=== PATIENT | male | born 1960 | race Caucasian/White ===

== ENCOUNTER 2023-12-26 23:26 | Day surgery (SDC) | payer OTHER, SELFPAY ==
[2023-12-26 20:21] VITALS: BP 151/94
--- NOTE | 2023-12-26 21:21 | ED.GENMED ---
History of Present Illness
General
Chief Complaint: Abdominal Pain
Source: patient
Time Seen by Provider: 12/26/23 20:51
History of Present Illness
History of Present Illness:
63-year-old male presenting to the emergency department for evaluation of right lower quadrant abdominal pain that began last night, initially started as generalized abdominal discomfort but localized to the right lower abdomen today. Patient
denies any fevers, chills, rigors but states today he really has not had much of an appetite. Denies any history of similar. Did not take anything for pain prior to arrival. No other concerns. Noted surgical history for previous hernia repair.
Past History
Past History
ED Past Medical History: None
ED Past Surgical History: Other
Social History
Tobacco: Non-smoker
Alcohol: Occasional
Drug: None
Personal:
Living: with family
Employment: Employed
Review of Systems
Review of Systems
All Other Systems: ROS reviewed and negative except as documented in HPI and ROS
Phy Exam
Physical Exam
Physical Exam:
GENERAL: Alert , in no apparent distress
EYE: clear conjunctiva b/l
HEAD: NCAT
ENT: , mmm.
CARDIAC: Regular rate and rhythm .
LUNGS: Clear breath sounds bilaterally, no acute respiratory distress, no wheezes/rales/rhonchi
ABDOMEN: firm, guarding with palpation to RLQ, no cvat, negative Winn sign, moderate tenderness at McBurney's point
NEUROLOGICAL: Alert and oriented
SKIN: Warm and dry, skin intact.
MUSCULOSKELETAL: well perfused.
PSYCH: Normal and appropriate interaction.
Scores
Heart Failure Risk
Heart Failure Risk Score: Not Applicable
Heart Score for Chest Pain Patients
STEMI patient?: Not applicable
Withdrawal Assessment of Alcohol
Withdrawal Assessment Completed?: Not applicable
Course
Orders/Labs/Results
Orders:
Orders
12/26/23 20:58
CT Abd/Pel (IV only)-DH only Urgent
Comment:
Reason For Exam: RLQ pain
12/26/23 21:17
Complete Blood Count/With Diff Urgent
Comprehensive Metabolic Panel Urgent
Lipase Urgent
Urinalysis Reflex To Culture Urgent
Date Specimen was Collected: 12/26/23
Time Specimen was Collected: 20:59
Urine Microscopic Reflex Cult Urgent
Urine Culture Urgent
CHARLENE Source: U
Specimen Description:
Date Specimen was Collected: 12/26/23
Time Specimen was Collected: 20:59
12/26/23 22:50
Fosfomycin [Monurol] 3 gm PO ONCE ONE
12/26/23 22:55
LevoFLOXacin 500 MG/100 ML [Levaquin] 500 mg in 100 ml IV NOW
MetroNIDAZOLE 500 MG/100 ML [Flagyl 500 mg] 100 ml IV NOW
Abnormal Lab Results
12/26/23
21:17
WBC 14.8 H 10^3/uL
(4.8-10.8)
MPV 10.5 H fL
(7.4-10.4)
Abs Immat Gran (auto) 0.1 H 10^3/uL
(0-0.05)
Absolute Neuts (auto) 12.2 H 10^3/uL
(1.4-6.5)
Absolute Lymphs (auto) 0.9 L 10^3/uL
(1.2-3.4)
Absolute Monos (auto) 1.5 H 10^3/uL
(0.1-0.6)
Immature Gran % 0.7 H %
(0-0.5)
Neutrophils % 82.5 H %
(42.2-75.2)
Lymphocytes % 6.0 L %
(20.5-51.1)
Monocytes % 10.2 H %
(1.7-9.3)
Glucose 132 H mg/dl
(70-99)
Total Bilirubin 3.0 H mg/dl
(0.2-1.3)
Urine Ketones 3+ A
(Negative)
Leukocyte Esterase Rfl Trace A
(Negative)
Urine WBC (Reflex) 26-30 A /HPF
(0-5)
Urine Bacteria (Reflex) Few A
(Negative)
12/26/23 21:17
12/26/23 21:17
Vital Signs
Initial and Last Documented VS:
Initial Vital Signs
Temp Pulse Resp BP Pulse Ox
98.1 F 115 16 151/94 98
12/26/23 20:21 12/26/23 20:21 12/26/23 20:21 12/26/23 20:21 12/26/23 20:21
Last Documented Vital Signs
Temp Pulse Resp BP Pulse Ox
98.1 F 112 15 156/83 96
12/26/23 20:21 12/26/23 22:32 12/26/23 22:32 12/26/23 22:32 12/26/23 22:32
MDM/Problems Addressed
Differential Diagnosis Includes:
appendicitis, peritonitis, diverticulitis, renal/ureteral colic
MDM/Problems Addressed:
63-year-old male presenting to the ER for evaluation abdominal pain that started yesterday, localized to the right lower quadrant today. Focally tender within the right lower quadrant with a firm abdomen. Clinically suspicious for acute
appendicitis. Labs and CT imaging ordered. Patient declining anything for pain at this time. Reassessment following.
*Radiology
Radiology exam reviewed: radiology read reviewed
*Pulse Oximetry
Patient hypoxic: no
*Critical Care Note
Total Time (30-74mins, 75-104mins- exclusive of procedures): Not Applicable
Patient Management
Discussion with other providers: Hospitalist and Starch Treating Assistant
Escalation/DeEscalation of care consider admission/obs:
Patients CT scan shows acute appendicitis. no abscess/perforation. General surgery notified. levaquin/flagyl ordered for abx coverage. House provider notified to admit to general surgery service. NPO after midnight. Plan for OR in the morning.
ED Attending Note
-
Portions of this chart may have been created with voice recognition software.� Occasional wrong word or��sound alike� substitutions may have occurred due to the inherent limitations of voice recognition software.
Discharge Plan
Departure
Patient Disposition: Admit
Date of Disposition: 12/26/23
Time of Disposition: 22:52
Presentation/result/management discussed w/ accepting MD/DO: Robson
Patient with high blood pressure during this ER visit?: No
Discharge Problem:
Acute appendicitis
Prescriptions:
No Action
No Current Medications
0
Referrals:
UNKNOWN - PT DOES,NOT KNOW [Family Provider] -
Interventions
Interventions:
*Risk Screen - Suicide Last Done: 12/26/23 20:20
*General Assessment Last Done: 12/26/23 20:53
*Neglect/Abuse Screening Last Done: 12/26/23 20:21
ED- Fall Risk Assessment Last Done: 12/26/23 20:54
*ED COVID-19 Vaccine History Last Done: 12/26/23 20:53
EA-Awqzcx-Okklrebgqv Assessment Last Done: 12/26/23 20:54
Discharge Date and Time
Print Language: CROATIAN
[2023-12-26 21:36] LABS: % Basophils 0.4 % (0-2); % Eosinophils 0.2 % (0-6); % Immature Granulocytes 0.7 % (0-0.5); % Monocytes 10.2 % (1.7-9.3); % Neutrophils 82.5 % (42.2-75.2); Absolute Basophils 0.1 10^3/uL (0-0.2); Absolute Immature Granulocytes 0.1 10^3/uL (0-0.05); Absolute Lymphocytes 0.9 10^3/uL (1.2-3.4); Absolute Monocytes 1.5 10^3/uL (0.1-0.6); Absolute Neutrophils 12.2 10^3/uL (1.4-6.5); Hematocrit 49.8 % (39.0-52.0); Hemoglobin 17.9 g/dL (13.0-18.0); Mean Corp Hgb Conc. 35.9 g/dL (33.0-37.0); Mean Corpuscular Hgb 30.7 pg (27.0-31.0); Mean Corpuscular Volume 85.3 fL (80.0-94.0); Mean Platelet Volume 10.5 fL (7.4-10.4); Nucleated Red Blood Cells % 0 % (-); Platelet Count 228 10^3/uL (130-400); Red Blood Cell Count 5.84 10^6/uL (4.70-6.10); Red Cell Dist. Width 12.3 % (11.5-14.5); White Blood Cell Count 14.8 10^3/uL (4.8-10.8)
[2023-12-26 21:38] LABS: Urine Albumin Negative (Neg - Trace); Urine Bilirubin Negative (Negative); Urine Character Clear (Clear); Urine Color Yellow; Urine Glucose Negative (Negative); Urine Ketone 3+ (Negative); Urine Leukocyte Trace (Negative); Urine Nitrite Negative (Negative); Urine Occult Blood Negative (Negative); Urine Urobilinogen Negative (Neg - 1+)
[2023-12-26 21:46] LABS: ALT (SGPT) 35 U/L (0-50); AST (SGOT) 33 U/L (17-59); Alkaline Phosphatase 79 U/L (38-126); Blood Urea Nitrogen 12 mg/dl (9-20); Calcium 9.9 mg/dl (8.4-10.2); Carbon Dioxide 26 mmol/L (22-30); Chloride 98 mmol/L (98-107); Glucose 132 mg/dl (70-99); Lipase 51 U/L (23-300); Sodium 138 mmol/L (135-145); Total Protein 7.5 g/dl (6.3-8.2); eGFR > 60.00
[2023-12-26 21:52] LABS: Urine Bacteria Few (Negative); Urine Squamous Cell 0-2 /LPF (Few); Urine White Cell 26-30 /HPF (0-5)
[2023-12-26 22:32] VITALS: BP 156/83; BMI 21.8
[2023-12-26] MEDS: FLAGYL 500 MG 100 IV (23:02)
[2023-12-27] VITALS (16 sets, daily range): BP systolic 115–138; BP diastolic 67–80; BMI 21.4
--- NOTE | 2023-12-27 00:45 | PTCARENOTE ---
Pt received from ED at 0030. Pt pleasant, AAOX3, VSS, and able to ambulate into room. Pt states he is not experiencing any pain at the moment, just slight discomfort. Pt bed in lowest position and call pantoja within reach. Pt educated on the
importance of call pnatoja usage, pt relays understanding and cooperation. Will continue with current plan of care.
--- NOTE | 2023-12-27 01:12 | HPS.HSE ---
Family Physician
<BASILIO Hurley - Last Filed: 12/27/23 01:36>
-
Family Physician: NOT KNOW UNKNOWN - PT DOES
Chief Complaint
<BASILIO Hurley - Last Filed: 12/27/23 01:36>
-
abd pain (RLQ)
History of Present Illness
63-year-old male presenting to the emergency department for evaluation of right lower quadrant abdominal pain that began last night, initially started as generalized abdominal discomfort but localized to the right lower abdomen today. [place] as
though he need to have BM so he took miralax but pain continued. Patient denies any fevers, chills, rigors. Took his temp via forehead thermometer and read 99. Afebrile in ED. States today he really has not had much of an appetite. Denies any
history of similar. Took an aleve for pain prior to arrival. No other concerns. Noted surgical history for previous inguinal hernia repair bilaterally.
CT abd: IMPRESSION:
Blind-ending tubular structure in the right lower quadrant of the abdomen measuring up to 1.3 cm with likely small appendicolith within and with some surrounding stranding suspicious for ACUTE APPENDICITIS with likely secondary associated adjacent
stranding of the cecum and terminal ileum.
Horseshoe kidney with nonobstructing right-sided calculus
WBC 14.8 with neutrophil 82.5
Due to PCN allergy started on levaquin/flagyl iv
Medical History
<BASILIO Hurley - Last Filed: 12/27/23 01:36>
Past Medical History
Past Medical History: Reports None
Past Surgical History: Reports Other (bilateral inguinal hernia repair 2000, 2001 )
Social History
Tobacco: Non-smoker
Alcohol: None
Drug: None
Personal:
Living: With Family
Family History
Family History: Not pertinent
Allergies / Home Medications
Allergies reflects when Allergies were last updated in [employer].
Home Medications with original date entered in [employer]
Allergy/Medication List:
Takes no medication on daily basis
Aleve po one tab prn pain
Review of Systems
<BASILIO Hurley - Last Filed: 12/27/23 01:36>
-
History Source: Patient
A 12 point ROS was completed and negative except as noted: Yes
Constitutional: Reports Fever (99, felt flushed) and Other (anorexia today)
EENT: Reports No Symptoms
Respiratory: Reports No Symptoms
Cardiac: Reports No Symptoms
Abdomen/GI: Reports Abdominal Pain (initially diffuse abd pain then localized to RLQ) and Constipated (thought maybe pain was caused by constipated at first)
: Reports No Symptoms
Musculoskeletal: Reports No Symptoms
Skin: Reports No Symptoms
Neurological: Reports No Symptoms
Endocrine: Reports No Symptoms
Hematologic/Lymphatic: Reports No Symptoms
Psych: Reports No Symptoms
Physical Exam
<BASILIO Hurley - Last Filed: 12/27/23 01:36>
Vital Signs
Vital Signs
Temp Pulse Resp BP Pulse Ox
98.6 F 128 18 127/80 98
12/27/23 00:25 12/27/23 00:25 12/27/23 00:25 12/27/23 00:25 12/27/23 00:25
Physical Exam
General: Well Developed, Well Nourished, No Apparent Distress and Comfortable (no pain laying down, only with movement)
HEENT: NormoCephalic, Anicteric, Moist mucous membranes, Atraumatic, Good Dentition and PERRLA
Respiratory: Clear and Non Labored Respirations
Cardiac: S1/S2 and Tachycardia (HR 114 reg)
Breast: Deferred by me
GI: Soft, Tender (RLQ) and Distended (softly distended)
Rectal: Deferred by Provider
Musculoskeletal: No Clubbing and No Cyanosis
Skin: Dry
Neuro: Alert, Oriented, AO x 3 and No Motor Deficits
Hematologic/Lymphatic: No Lymphadenopathy
Psych: Calm
Laboratory Results
<BASILIO Hurley - Last Filed: 12/27/23 01:36>
-
12/26/23 21:17
12/26/23 21:17
Laboratory Results
Total Bilirubin 3.0 mg/dl (0.2-1.3) H 12/26/23 21:17
AST 33 U/L (17-59) 12/26/23 21:17
ALT 35 U/L (0-50) 12/26/23 21:17
Alkaline Phosphatase 79 U/L (38-126) 12/26/23 21:17
Lipase 51 U/L (23-300) 12/26/23 21:17
Data Reviewed
<BASILIO Hurley - Last Filed: 12/27/23 01:36>
-
CT Scan: Report Reviewed by me and Discussed with Physician
Impression/Plan
<BASILIO Hurley - Last Filed: 12/27/23 01:36>
-
IMPRESSION:
acute appendicitis
PLAN:
Admit to service of Dr Chance
#acute appendicitis
-NPO x meds after midnight- OR sometime tomorrow
-Pain control: tylenol, toradol, dilaudid
-cont levaquin and flagyl iv
-CT abd: IMPRESSION: Blind-ending tubular structure in the right lower quadrant of the abdomen measuring up to 1.3 cm with likely small appendicolith within and with some surrounding stranding suspicious for ACUTE APPENDICITIS with likely secondary
associated adjacent stranding of the cecum and terminal ileum.
Horseshoe kidney with nonobstructing right-sided calculus
-WBC 14.8/neutrophiles 82.5 -> continue to trend cbc
#Tachycardia:
-likely due to infection/pain vs dehydration
-Will monitor on tele for now
-IVF overnight
#hyperbilirubinemia
-bili 3.0
-Likely due to infection
-repeat in am
#poss uti-
-levaquin should cover for now
- follow up urine culture
-UA with Leukocytosis and WBC
DVT proph: scd
Full code
<Baldo Lin MD - Last Filed: 12/27/23 10:07>
-
IMPRESSION:
acute appendicitis
PLAN:
Admit to service of Dr Chance
#acute appendicitis
-NPO x meds after midnight- OR sometime tomorrow
-Pain control: tylenol, toradol, dilaudid
-cont levaquin and flagyl iv
-CT abd: IMPRESSION: Blind-ending tubular structure in the right lower quadrant of the abdomen measuring up to 1.3 cm with likely small appendicolith within and with some surrounding stranding suspicious for ACUTE APPENDICITIS with likely secondary
associated adjacent stranding of the cecum and terminal ileum.
Horseshoe kidney with nonobstructing right-sided calculus
-WBC 14.8/neutrophiles 82.5 -> continue to trend cbc
#Tachycardia:
-likely due to infection/pain vs dehydration
-Will monitor on tele for now
-IVF overnight
#hyperbilirubinemia
-bili 3.0
-Likely due to infection
-repeat in am
#poss uti-
-levaquin should cover for now
- follow up urine culture
-UA with Leukocytosis and WBC
DVT proph: scd
Full code
I saw and examined the patient independently.
The Corn Grower's note was reviewed and I agree with the note, assessment and plan except where noted below.
Comment: This is a 63-year-old male who presents with a 2-day history of worsening abdominal pain now more focal in the right lower quadrant. Exam, imaging, blood work all consistent with acute cholecystitis.
Will plan for a laparoscopic appendectomy today.
N.p.o., IV fluids, IV antibiotics.
Risks/Benefits/Alternatives, expected postoperative course and possible complications (bleeding, infection, injury to surrounding structures, acute/chronic pain) discussed at length. Patient wishes to proceed with surgery. All questions answered.
Consent obtained.
I spent 60 minutes in total for the care of this patient today including direct patient care and counseling, reviewing labs, imaging, coordination of care, as well as documentation.
[2023-12-27] MEDS: NSS 1000 IV ×2 (01:13→19:32)
[2023-12-27] MEDS: LEVAQUIN 100 IV (01:13)
[2023-12-27 06:34] LABS: % Basophils 0.1 % (0-2); % Immature Granulocytes 0.4 % (0-0.5); % Lymphocytes 5.9 % (20.5-51.1); % Neutrophils 83.6 % (42.2-75.2); Absolute Immature Granulocytes 0.1 10^3/uL (0-0.05); Absolute Lymphocytes 0.9 10^3/uL (1.2-3.4); Absolute Monocytes 1.6 10^3/uL (0.1-0.6); Absolute Neutrophils 13.2 10^3/uL (1.4-6.5); Hematocrit 45.3 % (39.0-52.0); Hemoglobin 16.5 g/dL (13.0-18.0); Mean Corp Hgb Conc. 36.4 g/dL (33.0-37.0); Mean Corpuscular Hgb 31.1 pg (27.0-31.0); Mean Corpuscular Volume 85.3 fL (80.0-94.0); Mean Platelet Volume 10.4 fL (7.4-10.4); Nucleated Red Blood Cells % 0 % (-); Platelet Count 198 10^3/uL (130-400); Red Blood Cell Count 5.31 10^6/uL (4.70-6.10); Red Cell Dist. Width 12.1 % (11.5-14.5); White Blood Cell Count 15.8 10^3/uL (4.8-10.8)
[2023-12-27 06:43] LABS: Lactic Acid 0.8 mmol/L (0.7-2.0)
[2023-12-27 07:02] LABS: ALT (SGPT) 27 U/L (0-50); AST (SGOT) 26 U/L (17-59); Albumin 4.1 g/dl (3.5-5.0); Alkaline Phosphatase 61 U/L (38-126); Blood Urea Nitrogen 10 mg/dl (9-20); Calcium 9.1 mg/dl (8.4-10.2); Carbon Dioxide 24 mmol/L (22-30); Chloride 102 mmol/L (98-107); Estimated Creatinine Clearance 76 ml/min; Glucose 131 mg/dl (70-99); Potassium 4.1 mmol/L (3.5-5.1); Sodium 140 mmol/L (135-145); Total Bilirubin 3.1 mg/dl (0.2-1.3); Total Protein 6.7 g/dl (6.3-8.2); eGFR > 60.00
[2023-12-27] MEDS: FLAGYL 500 MG 100 IV ×3 (08:11→22:25)
--- NOTE | 2023-12-27 10:40 | W.SUR.PREOP ---
Pre-Operative Surgical Note
-
I have examined this patient prior to the performance of the scheduled procedure.
The patient's condition is unchanged from the time of the current History and
Physical and the patient is able to undergo the scheduled procedure.
--- NOTE | 2023-12-27 13:52 | W.IMMPOSTOP ---
Surgical Immed Post Op Note
-
Primary Surgeon: Baldo Lin MD
Assisting Surgeon: None
Pre-op Diagnosis: Acute appendicitis
Post-op Diagnosis: Perforated appendicitis, peritonitis, intra-abdominal abscess
Procedure Performed:
1. Laparoscopic appendectomy
2. Drainage of intra-abdominal abscess
Anesthesia Type: General
Specimen / Cultures:
1. Appendix
2. Periappendiceal fluid for Gram stain and culture aerobic and anaerobic
Estimated Blood Loss: 7 cc
Complications: None
Operative Findings: Three 5 mm port appendectomy. Peritonitis could be appreciated over the bladder, small bowel and omentum. There was purulent fluid all along the right colic gutter. The appendix appeared perforated just distal to the base.
The base itself appeared healthy and was ligated with 2-0 PDS Endoloops. A 19 Danish round Bharathi drain was inserted through the left lateral port and passed along the pelvis and up the right colic gutter.
POST OP PLAN:
Imaging: None
Labs: Routine AM
Diet: Sips and chips, clears in pm, he is at risk for ileus
Analgesia: Tylenol 650mg q6 Anna, Radha 5mg q6 PRN, Dilaudid 0.5mg q2h PRN
Neuro/vascular checks: q4h
AC/AP: Hold Therapeutic AC, Ok for DVT PPx
Activity: Ad Carol
Wound/Incisions/Drains: Routine
Abx: Will plan for a 4-day course of antibiotics
Dispo: RNF
--- NOTE | 2023-12-27 14:10 | OR.RPT ---
Operative Report
Operative Report
Patient Name: Karan Gallardo
: 1960
Date of Operation: 12/27/2023
Preoperative Diagnosis: Acute Appendicitis
Postoperative Diagnosis: perforated appendicitis, peritonitis, intra-abdominal abscess
Procedure(s):
Laparoscopic Appendectomy
Drainage of intra-abdominal abscess
Surgeon(s):
Dr. Lin
Process Maintenance Technician(s):
JASMINE Bryan
RICK Vazquez
Anesthesia: General
Estimated Blood Loss: 7 cc
Urine Output: None
Drains/Lines/Implants: 19 Mozambican round Bharathi drain
Specimens:
1. Appendix
2. Peritoneal fluid for Gram stain and culture aerobic and anaerobic
HPI/Surgical Indications:
This is a 63-year-old male who presents with a 2 day history of abdominal pain. Exam, labs and imaging are consistent with acute appendicitis. Risks/Benefits/Alternatives were discussed at length, and the patient agreed to proceed with surgery.
Operative Findings: Three 5 mm port appendectomy. Peritonitis could be appreciated over the bladder, small bowel and omentum. There was purulent fluid all along the right colic gutter, which was cultured. The appendix appeared perforated just
distal to the base. The base itself appeared healthy and was ligated with 2-0 PDS Endoloops. A 19 Mozambican round Bharathi drain was inserted through the left lateral port and passed along the pelvis and up the right colic gutter.
Procedure Description:
The patient was placed in the supine position, with the left arm tucked, and general anesthesia was induced. The abdomen was prepared and draped in a sterile fashion so as to expose the entire abdomen. A surgical time out was taken. Abdominal access
was obtained with a 5 mm infra-umbilical Anastasia Entry. After confirming no injury on entrance, two additional 5mm ports were placed in the suprapubic area just off midline and in the left lower quadrant. The patient was placed in Trendelenberg with
the right slightly up. There is clear evidence of intra-abdominal peritonitis over the bladder, small bowel and omentum. After peeling back the omentum, the appendix was identified and a window was created in the mesoappendix. The appendix was
perforated near its base with free pus all along the right colic gutter and into the pelvis. Using a laparoscopic bipolar energy device, the meso appendix was divided. The base of the appendix appeared uninvolved and was ligated/divided using two
0-PDS Endoloops and the energy device. The appendix was placed in a specimen retrieval bag. The pus in the right colic gutter was cultured and then suctioned out. There was also pus in the pelvis which was suctioned and irrigated until clear. A
19 Mozambican round Bharathi drain was then introduced through the left lateral port and passed across the pelvis and then up the right colic gutter. It was secured to the skin with a 2-0 nylon suture. Hemostasis was confirmed and the ports were removed
under visualization. The specimen was passed off the field. The umbilical port was closed with a [id number] 0-PDS and the skin for all three ports was closed with interrupted monocryls and covered with dermabond. The patient was awoken from
anesthesia in good condition and transported to the recovery area.
I was the attending physician and performed the procedure with assistance from the CHANNEL PROCESS PLANT OPERATOR and student above. I was present for all portions of the case excluding skin closure.
Baldo Lin MD
[2023-12-27] MEDS: NSS IV (19:31)
[2023-12-28] MEDS: LEVAQUIN 100 IV (00:03)
[2023-12-28 03:32] VITALS: BP 133/75
[2023-12-28] MEDS: FLAGYL 500 MG 100 IV (06:01)
[2023-12-28] MEDS: NSS 1000 IV (06:01)
[2023-12-28 07:00] VITALS: BP 133/77
[2023-12-28 07:15] LABS: % Basophils 0.1 % (0-2); % Immature Granulocytes 0.7 % (0-0.5); % Lymphocytes 5.3 % (20.5-51.1); % Monocytes 8.6 % (1.7-9.3); % Neutrophils 85.3 % (42.2-75.2); Absolute Immature Granulocytes 0.1 10^3/uL (0-0.05); Absolute Lymphocytes 0.8 10^3/uL (1.2-3.4); Absolute Monocytes 1.2 10^3/uL (0.1-0.6); Absolute Neutrophils 12.1 10^3/uL (1.4-6.5); Hemoglobin 15.2 g/dL (13.0-18.0); Mean Corp Hgb Conc. 35.3 g/dL (33.0-37.0); Mean Corpuscular Hgb 30.6 pg (27.0-31.0); Mean Corpuscular Volume 86.7 fL (80.0-94.0); Mean Platelet Volume 10.9 fL (7.4-10.4); Nucleated Red Blood Cells % 0 % (-); Platelet Count 182 10^3/uL (130-400); Red Blood Cell Count 4.96 10^6/uL (4.70-6.10); Red Cell Dist. Width 12.5 % (11.5-14.5); White Blood Cell Count 14.2 10^3/uL (4.8-10.8)
[2023-12-28 07:35] LABS: Blood Urea Nitrogen 14 mg/dl (9-20); Calcium 8.6 mg/dl (8.4-10.2); Carbon Dioxide 21 mmol/L (22-30); Chloride 106 mmol/L (98-107); Estimated Creatinine Clearance 85 ml/min; Glucose 113 mg/dl (70-99); Potassium 3.9 mmol/L (3.5-5.1); Sodium 142 mmol/L (135-145); eGFR > 60.00
[2023-12-28 11:00] VITALS: BP 124/63
--- NOTE | 2023-12-28 12:06 | CM ---
[facility]/28[facility]23 13[facility]19[facility]
Dc order notrd along with VN consult
Call with pt who noes he feels he can manage the drain independently at home
Discussion with Marycarmen/surgery
They are in agreement with self care of drain at home
Discharge Disposition- home, no needs
Addendum entered by [facility] 12/28/23 12:09:
Of note, it noted to be OBS status on chart
Admission order noted for post surgical recovery
OBS notice not issued
Original Note:
CM met with pt and spouse bedside
They reside in a 2SH with 1STE, full flight to 2nd floor
Independent with all ADLs, denies DMEs
Denies financial insecurities
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
Very active at baseline
PCP- new pt appt at [facility] scheduled
Rx- [facility]
Pt POD #1 lap appy
No dc needs noted
Ability to stay on 1st floor if needed
Discharge Disposition- home, no needs anticipated, spouse transport
--- NOTE | 2023-12-28 13:03 | W.PN.GS2 ---
Today's Communication / Plan
-
dispo planning
Assessment / Plan
-
63 yo male presenting with perforated appendicitis now POD #1 lap appi with RYANNE left in place given perforation and peritonitis
No evidence of ileus
Minimal pain
Tolerating diet
--Advance to regular diet
--C/W RYANNE drain upon discharge
--Analgesics prn
--Will continue ABX upon discharge x 4 days
--OP follow up early next week for drain removal
Subjective Data
-
Date of Service: December 28, 2023
Patient seen and examined at bedside with Dr. Lin. Denies pain. Passing flatus. Denies n/v. Ambulating in halls with spouse.
Objective Data
-
Intake and Output
12/27/23 12/28/23 12/29/23
06:59 06:59 06:59
Intake Total 1580 / 1580 535 / 535
Output Total 800 / 800 20 / 20
Balance 780 / 780 515 / 515
Intake:
Oral fluids 480 / 480 120 / 120
IV fluids (Total) 1000 / 1000 400 / 400
Normosol 400 / 400
IV piggybacks 100 / 100
Amount instilled into Drain (
Total)
Left Middle Abdomen Misael- 15
Miles
Output:
Drain Output (Total) 20 / 20
Left Middle Abdomen Misael- 20 / 20
Miles
Urine, Voided 800 / 800
Other:
Number of approximated MODERATE 2
amounts of urine
Vital Signs
Temp Pulse Resp BP Pulse Ox
98.2 F 107 18 133/77 96
12/28/23 07:00 12/28/23 07:00 12/28/23 07:00 12/28/23 07:00 12/28/23 07:00
Lab Results
12/28/23 06:32
12/28/23 06:32
Calcium 8.6 mg/dl (8.4-10.2) 12/28/23 06:32
Total Bilirubin 3.1 mg/dl (0.2-1.3) H 12/27/23 06:21
AST 26 U/L (17-59) 12/27/23 06:21
ALT 27 U/L (0-50) 12/27/23 06:21
Alkaline Phosphatase 61 U/L (38-126) 12/27/23 06:21
Total Protein 6.7 g/dl (6.3-8.2) 12/27/23 06:21
Albumin 4.1 g/dl (3.5-5.0) 12/27/23 06:21
Physical Exam
-
NAD
ABD soft, nt, nd
Incisions with intact glue, no erythema. RYANNE with purulent serous fluid present
--- NOTE | 2023-12-28 13:12 | W.DS.TRANS ---
DC Summary - Resource Economist
-
Discharge Instructions:
Discharge Diagnosis/Procedures Perforated appendicitis status post laparoscopic
appendectomy
Diet As tolerated,Regular
Activity No strenuous activity
Driving Restrictions No driving for 24 hours
Bathing Restrictions OK to Shower
Instructions: How to Keep Track of Your Drainage
Stand-Alone Forms:
Changes to Home Medications: No
Discharge Medications:
DC Medications w/original date entered in [employer]
acetaminophen 325 mg tablet 650 mg (2 x 325 mg) PO Q4HPRN PRN mild pain #1 tab 12/28/23
ciprofloxacin HCl 500 mg tablet 500 mg PO Q12H #8 tabs 12/28/23
ibuprofen 200 mg tablet 400 - 600 mg (2 - 3 x 200 mg) PO Q6HPRN PRN moderate pain #1 tab 12/28/23
metronidazole 500 mg tablet 500 mg PO Q8H 4 days #12 tabs 12/28/23
Home Medication Changes
Pending Results: No
== END 2023-12-28 16:00 | disposition home or self-care (01) ==
LOC: SDS 23:26
PROVIDERS: Nurse Practitioner Family; Physician Assistant Medical; Surgery; ATTENDING PHYSICIAN Surgery; EMERGENCY PHYSICIAN Emergency Medicine
DX: K35.33 Acute appendicitis with perforation, localized peritonitis, and gangrene, with abscess (principal); B96.20 Unspecified Escherichia coli [E. coli] as the cause of diseases classified elsewhere
CPT/HCPCS: 44970; 88304; 74177; 80048; 80053; 81003; 81015; 83605; 83690; 85025; 87070; 87075; 87077; 87086; 87186; 87205; 96365; 99284; C1776; G0378; Q9967